=== PATIENT | female | born 1990 | race Caucasian/White ===

== ENCOUNTER 2021-09-04 16:41 | Inpatient (IN) ==
[2021-09-04] MEDS ORDERED: LACTATED RINGERS 1,000 ML IV ONE (17:19)
[2021-09-04] MEDS ORDERED: ONDANSETRON 4 MG/2 ML VIAL IV ONE (17:20)
[2021-09-04] MEDS ORDERED: HYDROmorphone 2 MG/1 ML VIAL IV STA (17:20)
[2021-09-04] MEDS ORDERED: RHO(D) IMMUNE GLOBULIN 300 MCG SYRINGE IM ONE (17:22)
[2021-09-04] MEDS ORDERED: fentaNYL 100 MCG/2 ML VIAL ONE (18:22)
[2021-09-04] MEDS ORDERED: ONDANSETRON 4 MG/2 ML VIAL IV PRN ×2 (18:55→19:19)
[2021-09-04] MEDS ORDERED: ONDANSETRON 4 MG/2 ML VIAL ONE (19:07)
[2021-09-04] MEDS ORDERED: SEVOFLURANE 1 UNIT/15 MINUTE INH ONE (19:07)
[2021-09-04] MEDS ORDERED: propofoL 200 MG/20 ML VIAL IV ONE (19:07)
[2021-09-04] MEDS ORDERED: ROCURONIUM 50 MG/5 ML VIAL IV ONE (19:07)
[2021-09-04] MEDS ORDERED: LIDOCAINE 2% 5 ML VIAL ONE (19:07)
[2021-09-04] MEDS ORDERED: DEXAMETHASONE 4 MG/1 ML VIAL ONE (19:07)
[2021-09-04] MEDS ORDERED: GLYCOPYRROLATE 0.4 MG/2 ML VIAL ONE (19:10)
[2021-09-04] MEDS ORDERED: NEOSTIGMINE 10 MG/10 ML VIAL ONE (19:10)
[2021-09-04] MEDS ORDERED: KETOROLAC 30 MG/1 ML VIAL ONE (19:15)
[2021-09-04] MEDS ORDERED: MAGNESIUM HYDROXIDE SUSP 30 ML UDCUP PO PRN (19:19)
[2021-09-04] MEDS ORDERED: IBUPROFEN 800 MG TABLET PO PRN (19:19)
[2021-09-04] MEDS ORDERED: BENZOCAINE/MENTHOL LOZENGE 18/BOX PO PRN (19:19)
[2021-09-04] MEDS ORDERED: DOCUSATE SODIUM 100 MG CAPSULE PO PRN (19:19)
[2021-09-04] MEDS ORDERED: ACETAMINOPHEN 325 MG TABLET PO PRN (19:19)
[2021-09-04] MEDS ORDERED: BISACODYL 10 MG SUPP RECTAL PRN (19:19)
[2021-09-04] MEDS ORDERED: LACTATED RINGERS 1,000 ML IV SCH (19:30)
[2021-09-04] MEDS: HYDROmorphone 2 MG/1 ML VIAL IV PRN ×4 (19:33→19:55)
[2021-09-05] MEDS: oxyCODONE/ACETAMINOPHEN 5-325 MG TABLET PO PRN ×2 (01:11→14:32)
[2021-09-05] MEDS ORDERED: KETOROLAC 30 MG/1 ML VIAL IV PRN (02:48)
[2021-09-05] MEDS ORDERED: PROMETHAZINE 25 MG/1 ML VIAL IM PRN (02:49)
[2021-09-05 05:58] LABS: Hematocrit 32.6 VOL% (35.7-47.0); Hemoglobin 11.3 GM/DL (12.0-16.0); Immature Granulocytes % 0.4 %; Immature Granulocytes Absolute 0.03 #; Lymphocytes # 0.7 10*3/uL (1.4-4.0); Lymphocytes % 9.8 % (21.3-54.2); Mean Corpuscular HGB Conc 34.7 GM/DL (32-36); Mean Corpuscular Volume 98.2 FL (87-102); Mean Platelet Volume 8.9 FL (9.6-12.0); Monocytes % 5.1 % (1.7-12.7); Neutrophils % 84.7 % (38.7-73.9); Platelet Count 258 T/CUMM (130-400); Red Blood Count 3.32 MC/CUMM (3.8-5.5); Red Cell Distribution Width 11.9 % (9.3-17.3); White Blood Count 7.2 T/CUMM (4-12)
[2021-09-05 13:27] VITALS: BP 87/50
== END 2021-09-05 16:55 | disposition home or self-care (01) | DRG 819 ==
LOC: EDUNIT# → EDBD → N.ED 16:41 → N.EDINP 19:18 → N.SDSINP 20:42 → N.OB 20:51
PROVIDERS: ADMIT Obstetrics & Gynecology; ATTEND Obstetrics & Gynecology